=== PATIENT | female | born 1955 | race Caucasian/White ===

== ENCOUNTER → 2022-05-21 12:49 | Outpatient (CLI) | payer MEDICARE, SELFPAY ==
--- NOTE | 2022-05-21 12:51 | DI.MG.S_ITS ---
BILATERAL DIGITAL SCREENING MAMMOGRAM 3D/2D WITH CAD: 05/21/2022 CLINICAL: Routine screening. Baseline exam by default. No prior exams were available for comparison. Both breasts are heterogeneously dense, which may obscure small masses (category c / 51-75% glandular tissue). Current study was also evaluated with a Computer Aided Detection (CAD) system. No significant masses, calcifications, or other findings are seen in either breast. IMPRESSION: NEGATIVE There is no mammographic evidence of malignancy. A 1 year screening mammogram is recommended. Based on the Tyrer Cuzick model (a risk assessment model) the patient's lifetime risk is 6.5% and her 10 year risk is 3.6%. According to the ACR, ACS, and NCCN guidelines, an annual breast MRI exam along with mammogram is recommended if the patient's lifetime risk is 20% or greater. This exam was interpreted at Station ID: [id number]. NOTE: For mammograms, a report in lay terms will be sent to the patient. Approximately 15% of breast malignancies will not be visualized mammographically. In the management of a palpable breast mass, a negative mammogram must not discourage biopsy of a clinically suspicious lesion. Electronically Signed By: Kary boyle/sonja:05/21/2022 17:31:38 letter sent: Normal Exam ACR BI-RADS Category 1: Negative [id number]
--- NOTE | 2022-05-21 13:56 | DI.ECHO.S_ITS ---
Interpretation Summary 1) Normal left ventricular thickness and size with low normal systolic function (EF 50-55%). 2) Normal right ventricular size and function. 3) Mild aortic stenosis present (valve area 1.7cm2, mean gradient 9mmHg, severity ratio 0.5). 4) No prior Echo available for comparison. Procedure: A two-dimensional transthoracic echocardiogram with color flow and Doppler was performed. The study quality was technically difficult. There is no prior echocardiogram noted for this patient. The patient was in sinus tachycardia with heart rates between 109-120 bpm during the exam. Left Ventricle: The left ventricle is normal in size and wall thickness. The ejection fraction is estimated to be 50-55%. There are no focal wall motion abnormalities. Diastolic function could not be accurately assessed due to tachycardia. Right Ventricle: The right ventricle is normal in size and function. Atria: Both atria are normal in size. The interatrial septum grossly appears intact with no obvious evidence for an atrial septal defect. Mitral Valve: The mitral valve is grossly normal. There is no mitral regurgitation noted. Aortic Valve: The aortic valve is mildly calcified. There is mild aortic stenosis. No aortic regurgitation is present. Tricuspid Valve: The tricuspid valve is normal in structure and function. No tricuspid regurgitation. Pulmonary artery pressures cannot be estimated because of the lack of a measurable TR jet velocity. Pulmonic Valve: The pulmonic valve is not well visualized. Great Vessels: The aortic root is normal size. The ascending aorta could not be visualized. The IVC is of normal diameter and collapses greater than 50% with a sniff. This suggests a low right atrial pressure of 3 mm Hg. Pericardium/ Pleura There is no pericardial effusion. There is no pleural effusion. MMode/2D Measurements & Calculations LVIDd: 3.7 cm LVOT diam: 2.0 cm LVIDs: 2.9 cm Ao root diam: 2.8 cm FS: 22.9 % IVSd: 1.0 cm LVPWd: 0.89 cm LV douglas. diameter/BSA (cm/m^2): 2.4 LV sys. diameter/BSA (cm/m^2): 1.9 LA dimension: 2.2 cm TAPSE: 1.8 cm Doppler Measurements & Calculations Ao V2 max: 200.6 cm/sec LVOT Max Santos: 109.4 cm/sec Ao V2 mean: 142.0 cm/sec LV V1 max P.8 mmHg Ao max P.1 mmHg LV V1 VTI: 14.1 cm Ao mean P.0 mmHg MEI(I,D): 1.5 cm2 Ao V2 VTI: 28.1 cm MEI(V,D): 1.7 cm2 sev ratio: 0.50 MEI indexed to BSA (cm^2/m^2): 1.0 Lat Peak E' Santos: 7.7 cm/sec SV(LVOT): 43.2 ml Reading Physician:03:11 PM
== END ==
PROVIDERS: PCP Nurse Practitioner Family; Referring Provider Nurse Practitioner Family; Visit Provider Nurse Practitioner Family
DX: Z12.31 Encounter for screening mammogram for malignant neoplasm of breast (principal); Z13.820 Encounter for screening for osteoporosis; M81.0 Age-related osteoporosis without current pathological fracture; Z78.0 Asymptomatic menopausal state; I35.0 Nonrheumatic aortic (valve) stenosis; I50.22 Chronic systolic (congestive) heart failure
CPT/HCPCS: 77063; 77067; 77080; 93306

== ENCOUNTER 2022-06-16 17:51 | Inpatient (IN) | payer MEDICARE, SELFPAY ==
[2022-06-16 17:56] VITALS: BP 108/58; PULSE 108; RESP 18; TEMP 37.2; O2SAT 84; BMI 16.6
--- NOTE | 2022-06-16 18:01 | DI.RAD.S_ITS ---
PROCEDURE: XR CHEST 1V INDICATIONS: Shortness of breath TECHNIQUE: One view of the chest was acquired. COMPARISON: None. FINDINGS: Surgical changes and devices: None. Lungs and pleura: Lungs are clear. No pleural effusions or pneumothorax. Mediastinum: Mediastinal contours appear normal. Heart size is normal. Bones and chest wall: No suspicious bony lesions. Mild dextroconvex scoliotic curvature is seen. Age-appropriate bony degenerative changes are seen. Overlying soft tissues appear unremarkable. IMPRESSION: No acute cardiopulmonary process is seen. Dictated by: Shashank Jeff M.D. on 06/16/2022 at 17:49 Approved by: Shashank Jeff M.D. on 06/16/2022 at 17:49
--- NOTE | 2022-06-16 18:15 | ED_ITS ---
HPI - General Adult General Chief complaint: Shortness of Breath/Dyspnea Stated complaint: Cough, O2 @ 88 Time Seen by Provider: 06/16/22 18:08 Source: patient and family Mode of arrival: Ambulatory Limitations: no limitations History of Present Illness HPI narrative: Patient is a 59-year-old female who arrives in the emergency department today by family vehicle for evaluation of shortness of breath. Patient does not have a history of underlying lung pathology. She has smoked in the past but not currently. At the end of last year she spent several days in the hospital for CHF. She is on medications. Earlier this week she started to develop a cough and shortness of breath which has worsened. Subjective fevers. Nonproductive cough. No chest pain. No lower extremity swelling. She is actually lost w eight over the past couple days. No sick contacts. She does have history of Crohn's disease as well and is not having any GI symptoms. She is on immunosuppressants for this. Was seen at her primary doctor's office today. Was found to be hypoxic. Was sent by private vehicle without oxygen Related Data Allergies Allergy/AdvReac Type Severity Reaction Status Date / Time latex Allergy Intermediate Hives Verified 06/16/22 19:05 Penicillins Allergy Unknown Verified 06/16/22 19:05 Review of Systems Review of Systems ROS Unobtainable: All systems reviewed & are unremarkable except as noted in HPI and below Patient History Medical History CHF (congestive heart failure) Crohn's disease Hypertension Social History Smoking Status: Former smoker Smoking Status: Former smoker alcohol intake frequency: holidays/special occasions only Substance Use Type: does not use Exam Initial Vital Signs Initial Vital Signs: Vital Signs Temperature 98.9 F 06/16/22 17:56 Pulse Rate 108 H 06/16/22 17:56 Respiratory Rate 18 06/16/22 17:56 Blood Pressure 108/58 L 06/16/22 17:56 Pulse Oximetry 84 L 06/16/22 17:56 Oxygen Delivery Method 06/16/22 17:56 Const General: cooperative and comfortable HENMT Head: normal to inspection and normocephalic Nose: external nose normal Mouth: moist mucous membranes Resp Effort & Inspection: normal respiratory effort, not labored, no respiratory distress and tachypneic Auscultation: diminished lung sounds Cardio Rate: tachycardic Rhythm: regular rhythm GI Inspection: normal to inspection Palpation: No tender Skin General: no rashes or lesions noted Neuro General: patient alert, patient awake, patient oriented x3 and moves all extremities Extrem General: No edema Psych Appearance: grossly normal and well kempt Scores GCS [place] coma scale eye opening: Spontaneous [place] coma scale verbal response: Orientated [place] coma scale motor response: Obey commands [place] coma scale total score: 15 Course Orders Ordered: ED Orders 06/16/22 18:01 XR chest 1V Stat 06/16/22 18:10 D Dimer Stat 06/16/22 18:20 Complete Blood Count AUTO DIFF Stat Comprehensive Metabolic Panel Stat Lactate (Lactic Acid) Stat NT-proBNP (BNP-Adult 18+) Stat Procalcitonin Stat Prothrombin Time INR Stat Troponin & CK Cardiac Panel Stat 06/16/22 18:26 Covid-19 + FLU A/B + RSV - PCR Stat 06/16/22 18:41 Urine Culture Stat 06/16/22 18:55 Blood Culture Stat Acetaminophen (Acetaminophen 325 Mg Tablet) 650 mg PO Q6H PRN PRN Reason: Fever/Mild Pain (1-3) Enoxaparin Sodium (Enoxaparin 40 Mg/0.4 Ml Syringe) 40 mg SUBCUT DAILY [facility] Ceftriaxone Sodium 1,000 mg/ (Sodium Chloride) 100 mls @ 200 mls/hr IV Q24H PRASAD Azithromycin 500 mg/ Dextrose 250 mls @ 250 mls/hr IV Q24H PRASAD Levofloxacin (Levaquin) 750 mg in 150 mls @ 100 mls/hr IV Q24H PRASAD Naloxone HCl (Naloxone 0.4 Mg/Ml Vial) 0.2 mg IV Q2MIN PRN PRN Reason: Opiate Reversal Ondansetron HCl (Ondansetron 4 Mg/2 Ml Inj) 4 mg IV Q8HR PRN PRN Reason: Nausea And Vomiting Discontinued Medications Albuterol/Ipratropium (Albuterol/Ipratropium 3 Ml Ampul) 3 ml INH NOW ONE Stop: 06/16/22 18:15 Last Admin: 06/16/22 18:17 Dose: 3 ml Documented By: OZIEL Ceftriaxone Sodium 1,000 mg/ (Sodium Chloride) 100 mls @ 200 mls/hr IV NOW ONE Stop: 06/16/22 18:42 Last Infusion: 06/16/22 19:52 Dose: 0 mls/hr Documented By: Admin: 06/16/22 19:15 Dose: 200 mls/hr Documented By: ANTONIO Sodium Chloride (Normal Saline 0.9%) 1,000 mls @ 125 mls/hr IV CONT PRASAD Last Infusion: 06/16/22 20:23 Dose: 0 mls/hr Documented By: Infusion: 06/16/22 19:07 Dose: 999 mls/hr Documented By: Admin: 06/16/22 19:06 Dose: 125 mls/hr Documented By: ANTONIO Azithromycin 500 mg/ Dextrose 250 mls @ 250 mls/hr IV NOW ONE Stop: 06/16/22 20:42 Vital Signs Vital signs: Vital Signs - 8 hr 06/16/22 17:56 06/16/22 18:18 06/16/22 19:05 Temperature 98.9 F Pulse Rate 108 H 105 H 105 H Respiratory Rate 18 28 H 92 H Blood Pressure 108/58 L 87/60 L Pulse Oximetry 84 L 94 92 Oxygen Delivery Method Room Air Nasal Cannula Oxygen Flow Rate 2 2 06/16/22 20:21 Temperature Pulse Rate 108 H Respiratory Rate 17 Blood Pressure 107/55 L Pulse Oximetry 94 Oxygen Delivery Method Nasal Cannula Oxygen Flow Rate 2 Medical Decision Making Medical Records Medical records reviewed: Yes I reviewed the patient's medical records. Lab Data Lab results reviewed: Yes I reviewed the patient's lab results. Result diagrams: 06/16/22 18:20 06/16/22 18:20 Labs: Lab Results 06/16/22 06/16/22 06/16/22 Range/Units 18:10 18:20 18:20 WBC 14.9 H (4.5-11.0) X10^3/uL RBC 3.99 L (4.0-5.2) X10^6/uL Hgb 11.7 L (12.0-16.0) g/dL Hct 35.2 L (36-46) % MCV 88.2 (80-100) fL MCH 29.3 (26-34) PG MCHC 33.2 (30-36) % RDW 13.3 (11.6-14.8) % Plt Count 184 (150-400) X10^3/uL Neut % (Auto) 84.4 H (50-75) % Lymph % (Auto) 7.8 L (25-40) % [place] % (Auto) 6.0 (3-14) % Eos % (Auto) 1.7 L (2-4) % Baso % (Auto) 0.1 (0-2) % Neut # (Auto) 46214 H (1664-9157) /uL Lymph # (Auto) 1200 (5469-8913) /uL [place] # (Auto) 900 (0-900) /uL Eos # (Auto) 300 (0-450) /uL Baso # (Auto) 0 (0-100) /uL PT 15.8 H (10.1-12.7) SECONDS INR 1.4 H (0.9-1.3) D-Dimer 666 H (<500) ng/ml Sodium (137-145) mmol/L Potassium (3.4-5.1) mmol/L Chloride (98-107) mmol/L Carbon Dioxide (22-32) mmol/L BUN (7-17) mg/dL Creatinine (0.52-1.04) mg/dL Estimated GFR (>60) mL/min BUN/Creatinine Ratio (6-22) Glucose (80-110) mg/dL Lactate (0.7-2.1) mmol/L Calcium (8.4-10.2) mg/dL Total Bilirubin (0.2-1.3) mg/dL AST (14-36) IU/L ALT (<35) IU/L Alkaline Phosphatase (38-126) U/L Total Creatine Kinase (30-135) U/L CK-MB (CK-2) CK-MB (CK-2) Rel Index Troponin I NT-Pro-B Natriuret Pep (<125) pg/mL Total Protein (6.3-8.2) g/dL Albumin (3.5-5.0) g/dL Globulin (1.7-4.1) g/dL Albumin/Globulin Ratio (1.0-2.8) Procalcitonin (<0.5) ng/mL SARS-CoV-2 (PCR) (Negative) Influenza A (RT-PCR) (NEGATIVE) Influenza B (RT-PCR) (NEGATIVE) RSV (PCR) (Negative) 01/10/0306/16/22 06/16/22 Range/Units 18:20 18:20 18:20 WBC (4.5-11.0) X10^3/uL RBC (4.0-5.2) X10^6/uL Hgb (12.0-16.0) g/dL Hct (36-46) % MCV (80-100) fL MCH (26-34) PG MCHC (30-36) % RDW (11.6-14.8) % Plt Count (150-400) X10^3/uL Neut % (Auto) (50-75) % Lymph % (Auto) (25-40) % [place] % (Auto) (3-14) % Eos % (Auto) (2-4) % Baso % (Auto) (0-2) % Neut # (Auto) (5233-3160) /uL Lymph # (Auto) (8366-6960) /uL [place] # (Auto) (0-900) /uL Eos # (Auto) (0-450) /uL Baso # (Auto) (0-100) /uL PT (10.1-12.7) SECONDS INR (0.9-1.3) D-Dimer (<500) ng/ml Sodium 138 (137-145) mmol/L Potassium 3.6 (3.4-5.1) mmol/L Chloride 97 L (98-107) mmol/L Carbon Dioxide 29 (22-32) mmol/L BUN 29 H (7-17) mg/dL Creatinine 0.73 (0.52-1.04) mg/dL Estimated GFR > 60 (>60) mL/min BUN/Creatinine Ratio 39.7 H (6-22) Glucose 137 H (80-110) mg/dL Lactate 1.4 (0.7-2.1) mmol/L Calcium 8.8 (8.4-10.2) mg/dL Total Bilirubin 1.3 (0.2-1.3) mg/dL AST 24 (14-36) IU/L ALT 21 (<35) IU/L Alkaline Phosphatase 84 (38-126) U/L Total Creatine Kinase 59 (30-135) U/L CK-MB (CK-2) TNP CK-MB (CK-2) Rel Index TNP Troponin I Cancelled < 0.012 NT-Pro-B Natriuret Pep 489 H (<125) pg/mL Total Protein 7.8 (6.3-8.2) g/dL Albumin 3.9 (3.5-5.0) g/dL Globulin 3.9 (1.7-4.1) g/dL Albumin/Globulin Ratio 1.0 (1.0-2.8) Procalcitonin (<0.5) ng/mL SARS-CoV-2 (PCR) (Negative) Influenza A (RT-PCR) (NEGATIVE) Influenza B (RT-PCR) (NEGATIVE) RSV (PCR) (Negative) 06/16/22 06/16/22 Range/Units 18:20 18:26 WBC (4.5-11.0) X10^3/uL RBC (4.0-5.2) X10^6/uL Hgb (12.0-16.0) g/dL Hct (36-46) % MCV (80-100) fL MCH (26-34) PG MCHC (30-36) % RDW (11.6-14.8) % Plt Count (150-400) X10^3/uL Neut % (Auto) (50-75) % Lymph % (Auto) (25-40) % [place] % (Auto) (3-14) % Eos % (Auto) (2-4) % Baso % (Auto) (0-2) % Neut # (Auto) (4202-1393) /uL Lymph # (Auto) (5250-9368) /uL [place] # (Auto) (0-900) /uL Eos # (Auto) (0-450) /uL Baso # (Auto) (0-100) /uL PT (10.1-12.7) SECONDS INR (0.9-1.3) D-Dimer (<500) ng/ml Sodium (137-145) mmol/L Potassium (3.4-5.1) mmol/L Chloride (98-107) mmol/L Carbon Dioxide (22-32) mmol/L BUN (7-17) mg/dL Creatinine (0.52-1.04) mg/dL Estimated GFR (>60) mL/min BUN/Creatinine Ratio (6-22) Glucose (80-110) mg/dL Lactate (0.7-2.1) mmol/L Calcium (8.4-10.2) mg/dL Total Bilirubin (0.2-1.3) mg/dL AST (14-36) IU/L ALT (<35) IU/L Alkaline Phosphatase (38-126) U/L Total Creatine Kinase (30-135) U/L CK-MB (CK-2) CK-MB (CK-2) Rel Index Troponin I NT-Pro-B Natriuret Pep (<125) pg/mL Total Protein (6.3-8.2) g/dL Albumin (3.5-5.0) g/dL Globulin (1.7-4.1) g/dL Albumin/Globulin Ratio (1.0-2.8) Procalcitonin 2.87 H (<0.5) ng/mL SARS-CoV-2 (PCR) Negative (Negative) Influenza A (RT-PCR) Flu a negative (NEGATIVE) Influenza B (RT-PCR) Flu b negative (NEGATIVE) RSV (PCR) Negative (Negative) MDM Narrative Medical decision making narrative: Given her presentation and new onset oxygen requirement and her leukocytosis and her elevated procalcitonin there was concern about pneumonia so she was started on antibiotics. Blood cultures were obtained. Patient was not hypotensive. Given her history of CHF and not clinically dehydrated we will hold on the 30 cc per kg of fluids. Also considered heart failure however her BNP is unremarkable and chest x-ray is unremarkable and she is not clinically in heart failure so we will hold on any diuretics. No prior history of COPD but given her smoking history this is a possibility. She had minimal if any improvement with the nebulizer. Her COVID/flu is negative. Her age adjusted D-dimer is below cut off so we will hold on any CTA for now. Given her new oxygen requirement patient does require admission to the hospital. Discussed this with the patient who expressed understanding. Discussed the case with Dr. Machado on-call for hospitalist who will admit for further evaluation and treatment. Discharge Plan Departure Patient Disposition: Admitted As Inpatient Clinical Impression: Breath shortness, Pneumonia, Hypoxia Admit Date/Time: 06/16/22 20:46 Admit Provider: Tevin Machado
[2022-06-16] MEDS: ALBUTEROL/IPRATROPIUM 3 ML AMPUL INH (18:17)
[2022-06-16 18:18] VITALS: PULSE 105; RESP 28; O2SAT 94
[2022-06-16 18:34] LABS: Add Manual Diff / Slide Review NO; Basophils Absolute Auto 0 /uL (0-100); Basophils Percent Auto 0.1 % (0-2); Eosinophils Absolute Auto 300 /uL (0-450); Eosinophils Percent Auto 1.7 % (2-4); Hematocrit 35.2 % (36-46); Hemoglobin 11.7 g/dL (12.0-16.0); Lymphocytes Absolute Auto 1200 /uL (1100-4500); Lymphocytes Percent Auto 7.8 % (25-40); Mean Corpuscular HGB Conc 33.2 % (30-36); Mean Corpuscular Hemoglobin 29.3 PG (26-34); Mean Corpuscular Volume 88.2 fL (80-100); Monocytes Absolute Auto 900 /uL (0-900); Neutrophils Absolute Auto 12600 /uL (1500-7000); Neutrophils Percent Auto 84.4 % (50-75); Platelet Count 184 X10^3/uL (150-400); Red Blood Cell Count 3.99 X10^6/uL (4.0-5.2); Red Cell Distribution Width 13.3 % (11.6-14.8); White Blood Cell Count 14.9 X10^3/uL (4.5-11.0)
[2022-06-16 18:44] LABS: INR 1.4 (0.9-1.3); Prothrombin Time 15.8 SECONDS (10.1-12.7)
[2022-06-16 18:51] LABS: Lactate (Lactic Acid) 1.4 mmol/L (0.7-2.1)
[2022-06-16 18:52] LABS: Creatine Kinase 59 U/L (30-135)
[2022-06-16 18:53] LABS: Alanine Aminotransferase 21 IU/L (<35); Albumin 3.9 g/dL (3.5-5.0); Alkaline Phosphatase 84 U/L (38-126); Aspartate Aminotransferase 24 IU/L (14-36); BUN Creatinine Ratio 39.7 (6-22); Bilirubin Total 1.3 mg/dL (0.2-1.3); Blood Urea Nitrogen 29 mg/dL (7-17); Calcium 8.8 mg/dL (8.4-10.2); Carbon Dioxide 29 mmol/L (22-32); Chloride 97 mmol/L (98-107); Estimated Glomerular Filt Rate > 60 mL/min (>60); Globulin 3.9 g/dL (1.7-4.1); Glucose 137 mg/dL (80-110); HEMOLYSIS < 15 (0-50); Potassium 3.6 mmol/L (3.4-5.1); Sodium 138 mmol/L (137-145); Total Protein 7.8 g/dL (6.3-8.2)
[2022-06-16 19:00] LABS: NT-proBNP (BNP-Adult 18+) 489 pg/mL (<125)
[2022-06-16 19:03] LABS: Troponin I < 0.012 ng/mL (0.01-0.034)
[2022-06-16 19:05] VITALS: BP 87/60; PULSE 105; RESP 92; O2SAT 92
[2022-06-16] MEDS: SODIUM CHLORIDE 0.9% 1,000 ML 125 ML IV (19:06)
[2022-06-16 19:09] LABS: Procalcitonin 2.87 ng/mL (<0.5)
[2022-06-16 19:12] LABS: Influenza A - CEPHEID Flu A NEGATIVE (NEGATIVE); Influenza B - CEPHEID Flu B NEGATIVE (NEGATIVE); Respiratory Syncytial Virus Negative (Negative)
[2022-06-16] MEDS: cefTRIAXone 1,000 MG in SODIUM CHLORIDE 0.9% 100 ML 200 MG IV (19:15)
[2022-06-16 19:23] LABS: COVID-19 CEPHEID 4-PLEX PCR Negative (Negative)
[2022-06-16 19:37] LABS: D Dimer 666 ng/ml (<500)
[2022-06-16 20:21] VITALS: BP 107/55; PULSE 108; RESP 17; O2SAT 94
--- NOTE | 2022-06-16 21:47 | PM.HP.1 ---
History of Present Illness History of Present Illness Date Patient Seen: 06/16/22 Time Patient Seen: 22:00 Chief complaint: Cough, O2 @ 88 Narrative: Ms. Brasher is a 59W with PMH CHF, , crohns, HTN who presents to the hospital with shortness of breath. On Tuesday she started developing a cough that then developed into shortness of breath. She was not producing much sputum. She coughed so much she lost her voice. She has no fevers/chills. No chest pain. No weight gain. No lower extremity edema. No nausea, vomiting, abdominal pain, diarrhea, or dysuria. She was seen in clinic and O2 sats were in the 80s and she was directed to come to the ED. In the ED workup was done vitals were notable for afebrile, heart rate in the 100s, blood pressure 100s/50s, O2 sat 84%. She was placed on oxygen. Labs notable for WBC 14.9, hgb 11.7. INR 1.4, d-dimer 666. Creatinine 0.73. Troponin negative. BNP 489. Procalcitonin 2.87. Flu, covid, rsv negative. Chest xray per radiologist read read as no acute process, but per my read concerning for retrocardiac opacity. Family history: asked and no family history of CHF Patient History Medical History CHF (congestive heart failure) Crohn's disease Hypertension Family & Social History Safety & Behavioral: Feels Safe in Current Yes Environment Been Physically Hurt or No Threatened By a Person Tobacco & Substance use: Smoking Status Former smoker alcohol intake frequency holiday/special occasion Substance Use Type does not use Meds Home Medications and Allergies Home Medications Medication Instructions Recorded Confirmed Type albuterol sulfate 90 mcg/actuation 2 puff inhalation Q4-6H PRN 06/16/22 06/16/22 History aerosol inhaler Shortness Of Breath hydroxyzine HCl 10 mg/5 mL (5 mL) 25 mg PO QID PRN Anxiety 06/16/22 06/16/22 History oral solution ipratropium 0.5 mg-albuterol 3 mg 3 ml inhalation Q6H PRN Shortness 06/16/22 06/16/22 History (2.5 mg base)/3 mL nebulization Of Breath soln losartan 25 mg tablet 12.5 mg PO DAILY 06/16/22 06/16/22 History metoprolol succinate 100 mg 100 mg PO BEDTIME 06/16/22 06/16/22 History tablet,extended release 24 hr omeprazole 20 mg capsule,delayed 20 mg PO DAILY 06/16/22 06/16/22 History release spironolactone 25 mg tablet 25 mg PO DAILY 06/16/22 06/16/22 History torsemide 10 mg tablet 10 mg PO PRN PRN Weight Gain 06/16/22 06/16/22 History ustekinumab 90 mg/mL subcutaneous 90 mg SUBCUT Q8W 06/16/22 06/16/22 History syringe (Stelara) Allergies Allergy/AdvReac Type Severity Reaction Status Date / Time latex Allergy Intermediate Hives Verified 06/16/22 19:05 Penicillins Allergy Unknown Verified 06/16/22 19:05 Review of Systems Review of Systems Narrative: 14 systems reviewed and negative aside from what is noted in HPI Exam Vital Signs (past 8 hours): - 06/16/22 17:56 06/16/22 18:18 06/16/22 19:05 Temperature 98.9 F Pulse Rate 108 H 105 H 105 H Respiratory Rate 18 28 H 92 H Blood Pressure 108/58 L 87/60 L Pulse Oximetry 84 L 94 92 Oxygen Delivery Method Room Air Nasal Cannula Oxygen Flow Rate 2 2 06/16/22 20:21 Temperature Pulse Rate 108 H Respiratory Rate 17 Blood Pressure 107/55 L Pulse Oximetry 94 Oxygen Delivery Method Nasal Cannula Oxygen Flow Rate 2 Oxygen Delivery Method Nasal Cannula Oxygen Flow Rate 2 Narrative Exam Narrative: GEN: in respiratory distress HEENT: moist mucous membranes, PERRL NECK: trachea midline, no JVD PULM: coarse breath sounds bilaterally CV: tachycardia, no murmurs ABD: soft, nontender, nondistended, no organomegaly, normal bowel sounds EXT: warm and well perfused with no edema NEURO: awake, alert, oriented, no focal deficits Objective Labs Result Diagrams: 06/16/22 18:20 06/16/22 18:20 Labs: Laboratory Results - last 24 hr 06/16/22 06/16/22 06/16/22 18:10 18:20 18:20 WBC 14.9 H RBC 3.99 L Hgb 11.7 L Hct 35.2 L MCV 88.2 MCH 29.3 MCHC 33.2 RDW 13.3 Plt Count 184 Neut % (Auto) 84.4 H Lymph % (Auto) 7.8 L [place] % (Auto) 6.0 Eos % (Auto) 1.7 L Baso % (Auto) 0.1 Neut # (Auto) 13729 H Lymph # (Auto) 1200 [place] # (Auto) 900 Eos # (Auto) 300 Baso # (Auto) 0 PT 15.8 H INR 1.4 H D-Dimer 666 H Sodium Potassium Chloride Carbon Dioxide BUN Creatinine Estimated GFR BUN/Creatinine Ratio Glucose Lactate Calcium Total Bilirubin AST ALT Alkaline Phosphatase Total Creatine Kinase CK-MB (CK-2) CK-MB (CK-2) Rel Index Troponin I NT-Pro-B Natriuret Pep Total Protein Albumin Globulin Albumin/Globulin Ratio Procalcitonin SARS-CoV-2 (PCR) Influenza A (RT-PCR) Influenza B (RT-PCR) RSV (PCR) 06/16/22 06/16/22 06/16/22 18:20 18:20 18:20 WBC RBC Hgb Hct MCV MCH MCHC RDW Plt Count Neut % (Auto) Lymph % (Auto) [place] % (Auto) Eos % (Auto) Baso % (Auto) Neut # (Auto) Lymph # (Auto) [place] # (Auto) Eos # (Auto) Baso # (Auto) PT INR D-Dimer Sodium 138 Potassium 3.6 Chloride 97 L Carbon Dioxide 29 BUN 29 H Creatinine 0.73 Estimated GFR > 60 BUN/Creatinine Ratio 39.7 H Glucose 137 H Lactate 1.4 Calcium 8.8 Total Bilirubin 1.3 AST 24 ALT 21 Alkaline Phosphatase 84 Total Creatine Kinase 59 CK-MB (CK-2) TNP CK-MB (CK-2) Rel Index TNP Troponin I Cancelled < 0.012 NT-Pro-B Natriuret Pep 489 H Total Protein 7.8 Albumin 3.9 Globulin 3.9 Albumin/Globulin Ratio 1.0 Procalcitonin SARS-CoV-2 (PCR) Influenza A (RT-PCR) Influenza B (RT-PCR) RSV (PCR) 06/16/22 06/16/22 18:20 18:26 WBC RBC Hgb Hct MCV MCH MCHC RDW Plt Count Neut % (Auto) Lymph % (Auto) [place] % (Auto) Eos % (Auto) Baso % (Auto) Neut # (Auto) Lymph # (Auto) [place] # (Auto) Eos # (Auto) Baso # (Auto) PT INR D-Dimer Sodium Potassium Chloride Carbon Dioxide BUN Creatinine Estimated GFR BUN/Creatinine Ratio Glucose Lactate Calcium Total Bilirubin AST ALT Alkaline Phosphatase Total Creatine Kinase CK-MB (CK-2) CK-MB (CK-2) Rel Index Troponin I NT-Pro-B Natriuret Pep Total Protein Albumin Globulin Albumin/Globulin Ratio Procalcitonin 2.87 H SARS-CoV-2 (PCR) Negative Influenza A (RT-PCR) Flu a negative Influenza B (RT-PCR) Flu b negative RSV (PCR) Negative Assessment & Plan Assessment & Plan narrative: 1. Acute hypoxemic respiratory failure secondary to pneumonia -initial sats in the 80s, placed on oxygen -elevated white count, procalcitonin consistent clinically with pneumonia -UA dip negative for infection -chest xray negative per radiology read, per my read looks like retrocardiac opacity -IV antibiotics ordered 2. Chronic congestive heart failure with mild aortic stenosis -EF 50-55%, with mild -clinically not in CHF -careful with IV fluids -hold diuretics for now 3. Crohn's disease -on stelara as outpatient, continue when discharged 4. Hypertension -patient with somewhat low blood pressures on admit -hold home medications CODE: Full Proxy: Celeste Villatoro, daughter I have utilized all available resources to reconcile the patient's home medications Time Spent With Patient Critical Care time: I spent a total of [] minutes of critical care time on this patient's care today; this time is exclusive of procedural time.
[2022-06-16 21:50] VITALS: O2SAT 91
[2022-06-16 22:05] VITALS: BP 112/59; PULSE 107; RESP 17; TEMP 37.1; O2SAT 95
[2022-06-16 22:21] VITALS: BMI 16.6
[2022-06-16] MEDS: BENZONATATE 100 MG CAPSULE PO (23:03)
[2022-06-17] VITALS (11 sets, daily range): BP systolic 89–120; BP diastolic 47–71; PULSE 98–112; RESP 16–23; TEMP 36.9–38.8; O2SAT 2–95
[2022-06-17 05:51] LABS: Add Manual Diff / Slide Review NO; Basophils Absolute Auto 0 /uL (0-100); Basophils Percent Auto 0.3 % (0-2); Eosinophils Absolute Auto 100 /uL (0-450); Eosinophils Percent Auto 1.5 % (2-4); Hematocrit 30.6 % (36-46); Hemoglobin 10.4 g/dL (12.0-16.0); Lymphocytes Absolute Auto 1100 /uL (1100-4500); Lymphocytes Percent Auto 12.3 % (25-40); Mean Corpuscular HGB Conc 34.1 % (30-36); Mean Corpuscular Volume 87.9 fL (80-100); Monocytes Absolute Auto 600 /uL (0-900); Monocytes Percent Auto 6.4 % (3-14); Neutrophils Absolute Auto 7300 /uL (1500-7000); Neutrophils Percent Auto 79.5 % (50-75); Platelet Count 141 X10^3/uL (150-400); Red Blood Cell Count 3.48 X10^6/uL (4.0-5.2); Red Cell Distribution Width 13.2 % (11.6-14.8); White Blood Cell Count 9.2 X10^3/uL (4.5-11.0)
[2022-06-17 06:01] LABS: BUN Creatinine Ratio 28.1 (6-22); Blood Urea Nitrogen 18 mg/dL (7-17); Calcium 8.1 mg/dL (8.4-10.2); Carbon Dioxide 28 mmol/L (22-32); Chloride 104 mmol/L (98-107); Estimated Glomerular Filt Rate > 60 mL/min (>60); Glucose 103 mg/dL (80-110); HEMOLYSIS < 15 (0-50); Potassium 3.3 mmol/L (3.4-5.1); Sodium 140 mmol/L (137-145)
[2022-06-17] MEDS: ENOXAPARIN 40 MG/0.4 ML SYRINGE SUBCUT (09:12)
[2022-06-17] MEDS: levoFLOXacin 750 MG/150 ML PIGGYBACK 100 MG IV (09:12)
[2022-06-17] MEDS: POTASSIUM CHLORIDE 20 MEQ TAB 40 MEQ PO (09:21)
--- NOTE | 2022-06-17 10:06 | P.PN_ITS ---
Subjective Subjective Date Patient Seen: 06/17/22 Interval history: 67 year old female admitted with acute respiratory failure, likely due to bacterial pnuemonia. She is improved today but with continued cough which is causing her some rib pain. No nausea or vomiting. Still remains on a few L of oxygen. Exam Vital Signs (past 8 hours): - 06/17/22 04:14 06/17/22 05:50 06/17/22 09:47 Temperature 98.6 F 98.4 F Pulse Rate 106 H 108 H Respiratory Rate 16 20 Blood Pressure 96/49 L 90/71 Pulse Oximetry 92 92 95 Oxygen Delivery Method Nasal Cannula Oxygen Flow Rate 2 2 2 Oxygen Delivery Method Nasal Cannula Oxygen Flow Rate 2 Narrative Exam Narrative: GEN: thin female, no acute distress, fatigued. HEENT: moist mucous membranes, PERRL NECK: trachea midline, no JVD PULM: CTA b/l no wheezing, rhonchi, or rales. CV: RRR, no murmurs ABD: soft, nontender, nondistended EXT: warm and well perfused with no edema NEURO: awake, alert, oriented, no focal deficits Objective Labs Result Diagrams: 06/17/22 05:33 06/17/22 05:33 Labs: Laboratory Results - last 24 hr 06/16/22 06/16/22 06/16/22 18:10 18:20 18:20 WBC 14.9 H RBC 3.99 L Hgb 11.7 L Hct 35.2 L MCV 88.2 MCH 29.3 MCHC 33.2 RDW 13.3 Plt Count 184 Neut % (Auto) 84.4 H Lymph % (Auto) 7.8 L Cotton % (Auto) 6.0 Eos % (Auto) 1.7 L Baso % (Auto) 0.1 Neut # (Auto) 58360 H Lymph # (Auto) 1200 [place] # (Auto) 900 Eos # (Auto) 300 Baso # (Auto) 0 PT 15.8 H INR 1.4 H D-Dimer 666 H Sodium Potassium Chloride Carbon Dioxide BUN Creatinine Estimated GFR BUN/Creatinine Ratio Glucose Lactate Calcium Total Bilirubin AST ALT Alkaline Phosphatase Total Creatine Kinase CK-MB (CK-2) CK-MB (CK-2) Rel Index Troponin I NT-Pro-B Natriuret Pep Total Protein Albumin Globulin Albumin/Globulin Ratio Procalcitonin SARS-CoV-2 (PCR) Influenza A (RT-PCR) Influenza B (RT-PCR) RSV (PCR) 06/16/22 06/16/22 06/16/22 18:20 18:20 18:20 WBC RBC Hgb Hct MCV MCH MCHC RDW Plt Count Neut % (Auto) Lymph % (Auto) Cotton % (Auto) Eos % (Auto) Baso % (Auto) Neut # (Auto) Lymph # (Auto) Cotton # (Auto) Eos # (Auto) Baso # (Auto) PT INR D-Dimer Sodium 138 Potassium 3.6 Chloride 97 L Carbon Dioxide 29 BUN 29 H Creatinine 0.73 Estimated GFR > 60 BUN/Creatinine Ratio 39.7 H Glucose 137 H Lactate 1.4 Calcium 8.8 Total Bilirubin 1.3 AST 24 ALT 21 Alkaline Phosphatase 84 Total Creatine Kinase 59 CK-MB (CK-2) TNP CK-MB (CK-2) Rel Index TNP Troponin I Cancelled < 0.012 NT-Pro-B Natriuret Pep 489 H Total Protein 7.8 Albumin 3.9 Globulin 3.9 Albumin/Globulin Ratio 1.0 Procalcitonin SARS-CoV-2 (PCR) Influenza A (RT-PCR) Influenza B (RT-PCR) RSV (PCR) 06/16/22 06/16/22 06/17/22 18:20 18:26 05:33 WBC 9.2 RBC 3.48 L Hgb 10.4 L Hct 30.6 L MCV 87.9 MCH 30.0 MCHC 34.1 RDW 13.2 Plt Count 141 L Neut % (Auto) 79.5 H Lymph % (Auto) 12.3 L Cotton % (Auto) 6.4 Eos % (Auto) 1.5 L Baso % (Auto) 0.3 Neut # (Auto) 7300 H Lymph # (Auto) 1100 [place] # (Auto) 600 Eos # (Auto) 100 Baso # (Auto) 0 PT INR D-Dimer Sodium Potassium Chloride Carbon Dioxide BUN Creatinine Estimated GFR BUN/Creatinine Ratio Glucose Lactate Calcium Total Bilirubin AST ALT Alkaline Phosphatase Total Creatine Kinase CK-MB (CK-2) CK-MB (CK-2) Rel Index Troponin I NT-Pro-B Natriuret Pep Total Protein Albumin Globulin Albumin/Globulin Ratio Procalcitonin 2.87 H SARS-CoV-2 (PCR) Negative Influenza A (RT-PCR) Flu a negative Influenza B (RT-PCR) Flu b negative RSV (PCR) Negative 06/17/22 05:33 WBC RBC Hgb Hct MCV MCH MCHC RDW Plt Count Neut % (Auto) Lymph % (Auto) Cotton % (Auto) Eos % (Auto) Baso % (Auto) Neut # (Auto) Lymph # (Auto) Cotton # (Auto) Eos # (Auto) Baso # (Auto) PT INR D-Dimer Sodium 140 Potassium 3.3 L Chloride 104 Carbon Dioxide 28 BUN 18 H Creatinine 0.64 Estimated GFR > 60 BUN/Creatinine Ratio 28.1 H Glucose 103 Lactate Calcium 8.1 L Total Bilirubin AST ALT Alkaline Phosphatase Total Creatine Kinase CK-MB (CK-2) CK-MB (CK-2) Rel Index Troponin I NT-Pro-B Natriuret Pep Total Protein Albumin Globulin Albumin/Globulin Ratio Procalcitonin SARS-CoV-2 (PCR) Influenza A (RT-PCR) Influenza B (RT-PCR) RSV (PCR) PFSH Medical History CHF (congestive heart failure) Crohn's disease Hypertension Social History household members: family and children Smoking Status: Former smoker Assessment & Plan Assessment & Plan narrative: 1. Acute hypoxemic respiratory failure secondary to bacterial pneumonia -initial sats in the 80s, placed on oxygen, currently on 2L via NC. -elevated white count, procalcitonin consistent clinically with pneumonia. WBC improved today but all cell lines diminished. Ordered daily CBC. -UA dip negative for infection -chest xray negative per radiology read, but probable retrocardiac opacity. Consider repeat imaging or CT if no improvement. D-dimer negative with age adjusted cutoff. -initially given ceftriaxone and azithro, now continued on levaquin, 5-7 days of therapy total for bacterial pneumonia depending on progress 2. Chronic congestive heart failure with mild aortic stenosis -EF 50-55%, with mild -clinically not in CHF and appears euvolemic. -careful with IV fluids -hold diuretics for now until BP improved, borderline hypotension today. 3. Crohn's disease -on stelara as outpatient, continue when discharged 4. Hypertension -patient with somewhat low blood pressures on admit -hold home medications 5. Hypokalemia, acute - K 3.3, will replete with oral today. Ordered daily BMP. CODE: Full Proxy: Celeste Villatoro, daughter I have utilized all available resources to reconcile the patient's home medications Time Spent With Patient Critical Care time: I spent a total of [] minutes of critical care time on this patient's care today; this time is exclusive of procedural time. Quality VTE Deep Vein Thrombosis/Pulmonary Embolism Present on Admission: No
--- NOTE | 2022-06-17 12:57 | PC.NURSE ---
Addendum entered by Mattie Feliz R.N. 06/17/22 15:55: Pt resting at intervals denies discomfort SpO2 92% RA Call light w/in reach, pt calls appropriately for needs Continue w/plan of care. Original Note: Pt awake, denies discomfort at this time. HL x 2 hand intact/patent. Pt having relatively uneventful day Call light w/in reach, pt calls appropriately for needs.
--- NOTE | 2022-06-17 13:06 | CM.DANOTE ---
DCP Assessment: Patient is a 67 yr old male who was admitted for hypoxia and was placed on O2 here at the hospital. Patient is doing better today but is still on 2 L of O2 and MD wants her to stay until she is off oxygen. CM met with the patient at the bedside along with her daughter and primary caregiver. Patient lives [place] [address] [place] her daughter. patient resides on the ground level floor and has no need to go up the one stare to get into her daughters room. Patient is independent at baseline and has a Fww and Cane. Patients daughter does all the driving and transportation for the patient. I: Medicare and Selfpay Plan DC home with daughter when medically stable to do so [place] already has priority boarding. Melany Thakkar RNsocial work manager Discharge Planning/Care Management Advanced directive,confirm from FACILITY Start: 06/16/22 22:38 Freq: Q24H Status: Active Protocol: Document 06/16/22 22:38 MW (Rec: 06/17/22 07:04 MW [id number]) Advance Directive, confirm on record Time 21:00 Person contacted pt Copy received No CM Discharge Assessment Start: 06/17/22 13:03 Freq: Status: Active Protocol: Document 06/17/22 13:03 HS (Rec: 06/17/22 13:05 HS [id number]) Discharge Planning Assessment Assigned Hole Filler Melany Thakkar RNsocial work manager DPOA/Assigned Designee Name hanna Villatoro- Daughter Contact Information [phone] Advance Directives? No Advance Directives on File No History Provided By Patient,Family Member,Medical Record Prior Living Arrangements House Household Members family,children Type of transporation used prior to Relies on Others admit Comment Daughter provides all her transportation needs Independent with ADL's Yes Is patient alert and oriented? Yes Caregiver for Another No DME Already Rented / Owned FWW / Walker,Cane Barriers to Discharge No Discharge Plan Home Transportation Arrangement Daughter Hanna will be providing transportation back to [place] when mother is ready and already has priority boarding through her MD office Referrals Initiated None needed Whiteboard Updated in Patient Room with Yes name and ext. # of Hole Filler Review Status In Process Next Review Type Continued Stay Review
--- NOTE | 2022-06-17 16:31 | DIET.CONS ---
Dietary Consultation Note Admission Date: 06/16/2022 20:46 Assessment: 67y F admitted for cough, low oxygen requiring oxygen screened by RD for low BMI (16.6) and MNA score 4 (malnourished). RD met with patient at bedside. Pt until recently lived in [place], [place] and was hospitalized for 1mo for new dx Crohn's Disease and Congestive Heart Failure. At that time pt was experiencing significant malabsorption and down to 39kg. Pt was started on Stelara (monoclonal antibody) of which she has had two doses to date. Since April, pt has gained 7kg but remains 10kg below her UBW with severe BMI (16.6). Pt avoids dairy and chicken, is trying to avoid most industrialized food additives. Pt drinking [employer] ONS which she states is expensive (pea-protein based). Pt reports being under significant stress leading up to her new dx. of partner and moving into a communal living basement. Pt recently relocated to [place] to live with her daughter. Pts daughter has digestive condition causing her to make nearly all food from scratch from whole ingredients. Pts daughter willing to do same for pt. Ht: 167.64 cm Wt: 46.72 kg BMI: 16.6 (severe) UBW: 56.8kg Last BM: 06/14/22 (06/16/22 22:21) MNA: 4 Braulio Score: 17 Diet: 06/17/22 Breakfast Heart Healthy Diet Diet Modifications: lactose free Nutrition Percent Meal Consumed 75% 06/17/22 14:12 Percent Meal Consumed 90%/ 06/17/22 09:48 Labs: RBC 3.48 X10^6/uL (4.0-5.2) L 06/17/22 05:33 Hgb 10.4 g/dL (12.0-16.0) L 06/17/22 05:33 Hct 30.6 % (36-46) L 06/17/22 05:33 Creatinine 0.64 mg/dL (0.52-1.04) 06/17/22 05:33 Lactate 1.4 mmol/L (0.7-2.1) 06/16/22 18:20 NT-Pro-B Natriuret Pep 489 pg/mL (<125) H 06/16/22 18:20 Nutrition Diagnosis: Severe Acute Protein Calorie Malnutrition r/t malabsorption aeb pt 18% below UBW, BMI 16.6, pt with new dx Crohn's Disease on second dose of immunotherapy. -Malnutrition increases mortality and morbidity of hospitalized patients. Interventions: 1. Collaborated c pt on high protein/high kcal foods to eat while hospitalized and while at home. Providing pt pea-protein based smoothies in addition to meal trays as desired. RD informed kitchen staff on patient dietary requirements. 2. Reiterated supportive nutrition for Crohns as avoiding known triggers, managing stress, and avoiding excessive food additives in addition to continued medication management. 3. Suggested alternate pea-protein formulations which may be more cost effective to use in home setting. EER: 1600kcals (35kcal/kg), 65-70g PRO (1.5g/kg) Monitoring/Evaluations: ONS tolerance Electronically Signed by: Esperanza Eldridge 06/17/22 16:31 Clinical Dietitian [address] [address]
[2022-06-17] MEDS: SIMETHICONE 80 MG TABLET PO (21:10)
[2022-06-17] MEDS: SODIUM CHLORIDE 0.9% FLUSH 10 ML IV (21:11)
[2022-06-17] MEDS: CODEINE/GUAIFENESIN LIQUID 5ML UDC 5 ML PO (21:34)
[2022-06-17] MEDS: ACETAMINOPHEN 325 MG TABLET 650 MG PO (23:41)
[2022-06-17] MEDS: BENZONATATE 100 MG CAPSULE PO (23:41)
[2022-06-18] VITALS (14 sets, daily range): BP systolic 89–152; BP diastolic 46–70; PULSE 85–117; RESP 16–20; TEMP 36.2–38.8; O2SAT 90–97
[2022-06-18 05:40] LABS: Add Manual Diff / Slide Review NO; Basophils Absolute Auto 0 /uL (0-100); Basophils Percent Auto 0.3 % (0-2); Eosinophils Absolute Auto 200 /uL (0-450); Eosinophils Percent Auto 2.7 % (2-4); Hemoglobin 9.8 g/dL (12.0-16.0); Lymphocytes Absolute Auto 1200 /uL (1100-4500); Lymphocytes Percent Auto 15.6 % (25-40); Mean Corpuscular HGB Conc 33.7 % (30-36); Mean Corpuscular Hemoglobin 29.7 PG (26-34); Monocytes Absolute Auto 600 /uL (0-900); Monocytes Percent Auto 7.8 % (3-14); Neutrophils Absolute Auto 5400 /uL (1500-7000); Neutrophils Percent Auto 73.6 % (50-75); Platelet Count 151 X10^3/uL (150-400); Red Cell Distribution Width 13.1 % (11.6-14.8); White Blood Cell Count 7.4 X10^3/uL (4.5-11.0)
[2022-06-18 05:48] LABS: Magnesium 1.7 mg/dL (1.6-2.3)
[2022-06-18 05:49] LABS: BUN Creatinine Ratio 24.6 (6-22); Blood Urea Nitrogen 15 mg/dL (7-17); Calcium 8.1 mg/dL (8.4-10.2); Carbon Dioxide 29 mmol/L (22-32); Chloride 106 mmol/L (98-107); Estimated Glomerular Filt Rate > 60 mL/min (>60); Glucose 111 mg/dL (80-110); HEMOLYSIS < 15 (0-50); Potassium 3.3 mmol/L (3.4-5.1); Sodium 140 mmol/L (137-145)
[2022-06-18] MEDS: PANTOPRAZOLE DR 40 MG TABLET PO (07:00)
[2022-06-18] MEDS: ENOXAPARIN 40 MG/0.4 ML SYRINGE SUBCUT (08:41)
[2022-06-18] MEDS: levoFLOXacin 750 MG/150 ML PIGGYBACK 100 MG IV (08:41)
[2022-06-18] MEDS: SODIUM CHLORIDE 0.9% FLUSH 10 ML IV ×2 (08:41→20:51)
--- NOTE | 2022-06-18 08:45 | P.PN_ITS ---
Subjective Subjective Interval history: 59-year-old female with chronic congestive heart failure with preserved ejection fraction, mild aortic stenosis, Crohn's, and hypertension admitted with acute hypoxic respiratory failure and retrocardiac pneumonia. Patient received 1 dose of Rocephin and azithromycin and has now received 2 doses of IV Levaquin 750 mg. She is requiring 2 L of oxygen to maintain saturations. Initial white blood cell count was 14.9, it has now normalized to 7.4. Patient reports she is feeling a bit more fatigued today than yesterday. She is complaining of being quite tired and low energy. She reports she had a 22 day hospital stay in [place] at which time she was diagnosed with Crohn's. She lost 30 lb during that hospital stay and has not fully recovered. Daughter notes that they have been holding her metoprolol since admission. She is concerned about that as she reports it was prescribed for ?fast heart rate?. Her spironolactone and losartan have also been held. Patient was diagnosed with congestive heart failure while in [place]. At that time her ejection fraction was reported to be 35%. It is now up to 50%. She is additionally on torsemide which is being given as needed for increased weight gain. Exam Vital Signs (past 8 hours): - 06/18/22 04:00 06/18/22 01:00 06/18/22 05:00 Temperature 97.1 F L Pulse Rate 86 Respiratory Rate 18 Blood Pressure 105/46 L Pulse Oximetry 97 97 96 Oxygen Delivery Method Nasal Cannula Nasal Cannula Oxygen Flow Rate 2 2 2 Oxygen Delivery Method Nasal Cannula Oxygen Flow Rate 2 Narrative Exam Narrative: GEN: Chronically ill-appearing middle-aged female, Alert and oriented x 3, NAD HEENT:NC, Face symmetric CHEST: Respiratory excursions symmetric, inspiratory rhonchi heard in the right mid lung zone, clear on the left CV: RRR, no M/R/G ABD: Soft, mildly diffusely tender,ND, BT present in all 4 quadrants, no organomegaly or masses EXTR: warm, well perfused, no C/C/E SKIN: warm and dry, no rash NEURO: Alert and oriented x 3, nonfocal Objective Labs Result Diagrams: 06/18/22 05:13 06/18/22 05:13 Labs: Laboratory Results - last 24 hr 06/18/22 06/18/22 06/18/22 05:13 05:13 05:13 WBC 7.4 RBC 3.30 L Hgb 9.8 L Hct 29.0 L MCV 88.0 MCH 29.7 MCHC 33.7 RDW 13.1 Plt Count 151 Neut % (Auto) 73.6 Lymph % (Auto) 15.6 L [place] % (Auto) 7.8 Eos % (Auto) 2.7 Baso % (Auto) 0.3 Neut # (Auto) 5400 Lymph # (Auto) 1200 [place] # (Auto) 600 Eos # (Auto) 200 Baso # (Auto) 0 Sodium 140 Potassium 3.3 L Chloride 106 Carbon Dioxide 29 BUN 15 Creatinine 0.61 Estimated GFR > 60 BUN/Creatinine Ratio 24.6 H Glucose 111 H Calcium 8.1 L Magnesium 1.7 PFSH Medical History CHF (congestive heart failure) Crohn's disease Hypertension Social History household members: family and children Smoking Status: Former smoker Assessment & Plan Assessment & Plan narrative: 1. Acute hypoxic respiratory failure Etiology is pneumonia. O2 need is 2 L presently. Will wean down to 1 L and monitor. Continue treating for pneumonia as outlined below. I have encouraged her to work on getting out of bed today for a couple of hours and sitting in a chair. 2. Community Acquired pneumonia Viral PCR were flu, COVID, and RSV were negative. She does have abnormal breath sounds on the right side on exam. Now afebrile. White blood cell count improving. Continues on Levaquin. 3. Crohn's disease Presently holding Stelara. No diarrhea. 4. Chronic congestive heart failure with preserved ejection fraction Holding torsemide spironolactone for now. Clinically euvolemic. 5. Mild aortic stenosis Stable. 6. Hypertension Will plan to resume metoprolol, but hold losartan and spironolactone. 7. Hypokalemia Will continue to replete 8. Normocytic anemia Hemoglobin is 9.8. This is down from admission of 11.7. No concern for active bleeding. Likely hemodilutional. 9. Thrombocytopenia Mild yesterday at 141. Today has resolved and is 151. Code status Full Prophylaxis On Lovenox Disposition Work on weaning oxygen today increasing activity. Hopefully discharge home tomorrow. Time Spent With Patient Critical Care time: I spent a total of [] minutes of critical care time on this patient's care today; this time is exclusive of procedural time. Quality VTE Deep Vein Thrombosis/Pulmonary Embolism Present on Admission: No
[2022-06-18] MEDS: POTASSIUM CHLORIDE 20 MEQ TAB 40 MEQ PO (11:09)
[2022-06-18] MEDS: SIMETHICONE 80 MG TABLET PO (18:49)
[2022-06-18] MEDS: LACTOBACILLUS ACIDOPHILUS TABLET 1 EACH PO (18:49)
[2022-06-18] MEDS: BENZONATATE 100 MG CAPSULE PO (18:50)
[2022-06-18] MEDS: METOPROLOL ER 50 MG TABLET 100 MG PO (20:51)
[2022-06-19] VITALS: BP 104/58; PULSE 72; RESP 16; TEMP 37.6; O2SAT 94
[2022-06-19 02:00] VITALS: O2SAT 96
[2022-06-19 04:00] VITALS: BP 104/52; PULSE 65; RESP 20; TEMP 36.7; O2SAT 96
--- NOTE | 2022-06-19 04:58 | PC.NURSE ---
Pt is AxOx4, calm and cooperative. Pt needs STA assistance and pt denies pain. pt is on RA now and sats 92-93s. Pt lungs diminished in all area and RLL posterior, it has crackles. No other changes. Pt slept well. Continue monitor.
[2022-06-19 05:38] LABS: Add Manual Diff / Slide Review NO; Basophils Absolute Auto 0 /uL (0-100); Basophils Percent Auto 0.2 % (0-2); Eosinophils Absolute Auto 400 /uL (0-450); Eosinophils Percent Auto 6.8 % (2-4); Hematocrit 29.9 % (36-46); Hemoglobin 10.2 g/dL (12.0-16.0); Lymphocytes Absolute Auto 1400 /uL (1100-4500); Lymphocytes Percent Auto 26.9 % (25-40); Mean Corpuscular HGB Conc 34.3 % (30-36); Mean Corpuscular Hemoglobin 29.9 PG (26-34); Monocytes Absolute Auto 400 /uL (0-900); Monocytes Percent Auto 7.6 % (3-14); Neutrophils Absolute Auto 3100 /uL (1500-7000); Neutrophils Percent Auto 58.5 % (50-75); Platelet Count 196 X10^3/uL (150-400); Red Blood Cell Count 3.43 X10^6/uL (4.0-5.2); White Blood Cell Count 5.2 X10^3/uL (4.5-11.0)
[2022-06-19 05:44] LABS: Magnesium 1.7 mg/dL (1.6-2.3)
[2022-06-19 05:45] LABS: BUN Creatinine Ratio 21.2 (6-22); Blood Urea Nitrogen 11 mg/dL (7-17); Calcium 8.3 mg/dL (8.4-10.2); Carbon Dioxide 26 mmol/L (22-32); Chloride 105 mmol/L (98-107); Estimated Glomerular Filt Rate > 60 mL/min (>60); Glucose 101 mg/dL (80-110); HEMOLYSIS < 15 (0-50); Potassium 3.5 mmol/L (3.4-5.1); Sodium 139 mmol/L (137-145)
[2022-06-19 06:00] VITALS: O2SAT 94
[2022-06-19] MEDS: PANTOPRAZOLE DR 40 MG TABLET PO (06:03)
[2022-06-19 08:00] VITALS: BP 97/47; PULSE 95; RESP 16; TEMP 36.4; O2SAT 94
[2022-06-19] MEDS: levoFLOXacin 750 MG/150 ML PIGGYBACK 100 MG IV (09:03)
[2022-06-19] MEDS: ENOXAPARIN 40 MG/0.4 ML SYRINGE SUBCUT (09:03)
[2022-06-19] MEDS: LACTOBACILLUS ACIDOPHILUS TABLET 1 EACH PO (09:03)
[2022-06-19] MEDS: SODIUM CHLORIDE 0.9% FLUSH 10 ML IV (09:04)
--- NOTE | 2022-06-19 09:25 | PC.NURSE ---
Assess- Patient is alert and oriented x4, she denies pain. She is using her IS, ambulating with her daughter in the halls and is hoping to discharge home soon. Levaquin is infusing now.
[2022-06-19] MEDS: POTASSIUM CHLORIDE 20 MEQ TAB 40 MEQ PO (11:52)
[2022-06-19] MEDS: MAGNESIUM CHLORIDE 64 MG TABLET 128 MG PO (11:52)
--- NOTE | 2022-06-19 13:39 | PM.DS.1 ---
History of Present Illness History of Present Illness Date Patient Seen: 06/19/22 Time Patient Seen: 13:30 Chief complaint: Cough, O2 @ 88 Narrative: 59-year-old female with chronic congestive heart failure with preserved ejection fraction, mild aortic stenosis, Crohn's, and hypertension admitted with acute hypoxic respiratory failure and retrocardiac pneumonia Patient initially treated with Rocephin and then transitioned to Levaquin IV. Initially required oxygen and now is off oxygen supplementation. Eager to go home. No complaint of any fever chills nausea vomiting or diaphoresis. No chest pain or palpitations no shortness of breath wheezing or cough. No abdominal pain constipation or diarrhea. No dysuria hematuria. Able to move all extremities volitionally. No localized strength deficits. No localized neurological symptoms in extremities. Discharge Providers Provider Date of admission: 06/16/22 20:46 Discharge Date: 06/19/22 Primary care physician: RUBENS Amaya Discharge provider: Joselyn De Los Santos MD Summary Hospital Course Discharge Diagnosis: 1. Acute hypoxic respiratory failure secondary to pneumonia. Acute. 2. Community Acquired pneumonia, bacterial. Acute. 3. Crohn's disease, chronic. 4. Chronic congestive heart failure with preserved ejection fraction 5. Mild aortic stenosis, chronic 6. Hypertension, chronic 7. Hypokalemia, acute. 9. Thrombocytopenia, acute. Hospital Course: Patient presented with acute hypoxic respiratory failure requiring O2 supplementation. Documented retrocardiac pneumonia. Initially treated with Rocephin IV and then transitioned to Levaquin 750 mg IV every 24 hours. This will be continued orally on discharge. Potassium was replaced to correct hypokalemia. Patient's medication for Crohn's disease was held during the hospital stay and will be re-initiated on discharge. Medication for hypertension was continued during the hospital stay. Thrombocytopenia was noted on admission and resolved during the hospital stay. Status at Discharge Cognitive/behavioral status at discharge: at baseline, oriented Functional status at discharge: independent ambulation Overall status at discharge: patient is back to baseline Time Spent with Patient Time spent: Greater than 30 minutes Exam Vital Signs (past 8 hours): - 06/19/22 06:00 06/19/22 10:00 06/19/22 08:00 Temperature 97.6 F Pulse Rate 95 H Respiratory Rate 16 Blood Pressure 97/47 L Pulse Oximetry 94 94 Oxygen Delivery Method Room Air Room Air Oxygen Flow Rate 0 Oxygen Delivery Method Room Air Oxygen Flow Rate 0 Narrative Exam Narrative: GEN:? Alert and oriented x 3, NAD HEENT: Face symmetric, head normocephalic. Patient wearing glasses. Pupils equal reactive to light. Extraocular movements normal. CHEST: Respiratory excursions symmetric, general decreased air entry throughout the lung visit awad but no wheezes or crackles. CV: RRR, no M/R/G, heart sounds S1 and S2 ABD: Soft, mildly diffusely tender, bowel sounds present throughout the abdomen, no organomegaly or masses EXTR: warm, well perfused, no C/C/E SKIN: warm and dry, no rash, no lesions NEURO: Alert and oriented x 3, no localizing signs Objective Labs Result Diagrams: 06/19/22 05:14 06/19/22 05:14 Labs: Laboratory Results - last 24 hr 06/19/22 06/19/22 06/19/22 05:14 05:14 05:14 WBC 5.2 RBC 3.43 L Hgb 10.2 L Hct 29.9 L MCV 87.0 MCH 29.9 MCHC 34.3 RDW 13.0 Plt Count 196 Neut % (Auto) 58.5 Lymph % (Auto) 26.9 [place] % (Auto) 7.6 Eos % (Auto) 6.8 H Baso % (Auto) 0.2 Neut # (Auto) 3100 Lymph # (Auto) 1400 [place] # (Auto) 400 Eos # (Auto) 400 Baso # (Auto) 0 Sodium 139 Potassium 3.5 Chloride 105 Carbon Dioxide 26 BUN 11 Creatinine 0.52 Estimated GFR > 60 BUN/Creatinine Ratio 21.2 Glucose 101 Calcium 8.3 L Magnesium 1.7 PFSH Medical History CHF (congestive heart failure) Crohn's disease Hypertension Social History household members: family and children Smoking Status: Former smoker Discharge Plan Discharge Plan Patient Disposition: Home Discharge orders & Medications Prescriptions: New Freeze Dried Acidophilus Capsule 1 ea PO BIDWM Qty: 60 0RF acetaminophen 325 mg Tablet 650 mg PO Q6H PRN (Reason: Fever/Mild Pain (1-3)) Qty: 100 0RF benzonatate 100 mg Capsule 100 mg PO TID PRN (Reason: Cough) Qty: 30 0RF pantoprazole 40 mg Tablet,Delayed Release (Dr/Ec) 40 mg PO 0700 Qty: 30 0RF levofloxacin 750 mg tablet 750 mg PO DAILY Qty: 5 0RF Continued ipratropium-albuterol 0.5 mg-3 mg(2.5 mg base)/3 mL Solution For Nebulization 3 ml INHALATION Q6H PRN (Reason: Shortness Of Breath) metoprolol succinate 100 mg Tablet Extended Release 24 Hr 100 mg PO BEDTIME torsemide 10 mg Tablet 10 mg PO PRN PRN (Reason: Weight Gain) spironolactone 25 mg Tablet 25 mg PO DAILY losartan 25 mg Tablet 12.5 mg PO DAILY omeprazole 20 mg Capsule,Delayed Release(Dr/Ec) 20 mg PO DAILY albuterol sulfate 90 mcg/actuation Hfa Aerosol Inhaler 2 puff INHALATION Q4-6H PRN (Reason: Shortness Of Breath) Stelara 90 mg/mL Syringe 90 mg SUBCUT Q8W hydroxyzine HCl 10 mg/5 mL (5 mL) Solution 25 mg PO QID PRN (Reason: Anxiety) Follow up/Referrals: Ayala Garcia ARNP [Primary Care Provider] - Visit Report/Discharge Packet Stand Alone Forms: Patient Portal/API, Stroke Signs & Symptoms Discharge Data Primary Care Provider: Ayala Garcia VTE Deep Vein Thrombosis/Pulmonary Embolism Present on Admission: No
--- NOTE | 2022-06-19 15:22 | CM.DPC ---
DCP Discharge Home Per MD, pt is off oxygen and tolerating room air and medically stable to d/c home today and no identified barriers to discharge. Per RN, pt has been ambulating halls and has Dtr bedside and given d/c instructions and they plan to catch the [address]20 ferry back to [place] and no concerns at this time. Plan: Patient to d/c home today via Dtr POV back to [place] and no further SW needs at this time. BREE Turner
== END 2022-06-19 16:09 | disposition home or self-care (01) | DRG 193 ==
LOC: ED 20:41 → AC 20:47
PROVIDERS: Emergency Medicine; Internal Medicine; Admitting Provider Internal Medicine; Emergency Provider Emergency Medicine; PCP Nurse Practitioner Family; Referring Provider Emergency Medicine; Visit Provider Internal Medicine
DX: J15.9 Unspecified bacterial pneumonia (principal); J96.01 Acute respiratory failure with hypoxia; I50.32 Chronic diastolic (congestive) heart failure; I35.0 Nonrheumatic aortic (valve) stenosis; E87.6 Hypokalemia; I11.0 Hypertensive heart disease with heart failure; Z87.891 Personal history of nicotine dependence; Z20.822 Contact with and (suspected) exposure to COVID-19
CPT/HCPCS: 0241U; 36415; 71045; 80048; 80053; 81003; 82550; 83605; 83735; 83880; 84145; 84484; 85025; 85379; 85610; 87040; 87086; 94640; 94760; 96365; 99285; J0696; J1650; J1956

== ENCOUNTER → 2022-11-02 14:32 | Outpatient (CLI) | payer MEDICARE, SELFPAY ==
[2022-11-02 15:25] LABS: Alanine Aminotransferase 21 IU/L (<35); Albumin 4.2 g/dL (3.5-5.0); Albumin Globulin Ratio 1.3 (1.0-2.8); Alkaline Phosphatase 92 U/L (38-126); Aspartate Aminotransferase 26 IU/L (14-36); BUN Creatinine Ratio 31.7 (6-22); Bilirubin Total 0.8 mg/dL (0.2-1.3); Blood Urea Nitrogen 20 mg/dL (7-17); Calcium 8.7 mg/dL (8.4-10.2); Carbon Dioxide 24 mmol/L (22-32); Chloride 105 mmol/L (98-107); Estimated Glomerular Filt Rate > 60 mL/min (>60); Globulin 3.2 g/dL (1.7-4.1); Glucose 135 mg/dL (80-110); HEMOLYSIS < 15 (0-50); Potassium 3.8 mmol/L (3.4-5.1); Sodium 140 mmol/L (137-145); Total Protein 7.4 g/dL (6.3-8.2)
== END ==
PROVIDERS: PCP Nurse Practitioner Family; Referring Provider Nurse Practitioner; Visit Provider Nurse Practitioner
DX: I50.20 Unspecified systolic (congestive) heart failure (principal)
CPT/HCPCS: 36415; 80053

== ENCOUNTER → 2024-02-24 10:50 | Outpatient (CLI) | payer MEDICARE, SELFPAY ==
--- NOTE | 2024-02-24 10:58 | DI.RAD.S_ITS ---
PROCEDURE: XR DEXA AXIAL SKELETON INDICATIONS: POSTMENOPAUSAL ESTROGEN DEFICIENCY COMPARISON: [facility], CR, XR DEXA AXIAL SKELETON, 05/21/2022, 13:43. FINDINGS: Lumbar Spine: Bone mineral density 0.899 g/cm2, T score -1.3, previously -2.2. Left Femoral hip: Bone mineral density 0.638 g/cm2, T score -2.5, previously -2.7. Right Femoral hip: Bone mineral density 0.647 g/cm2, T score -2.4, previously -2.6. Fracture Risk Calculation (when applicable): 10-year fracture risk of a major osteoporotic fracture 23% and of a hip fracture 7.4%. (T score greater or equal to -1.0 to: NORMAL) (T score from -1.1 to -2.4: OSTEOPENIA) (T score less than or equal to -2.5: OSTEOPOROSIS) IMPRESSION: 1. Osteoporosis of the left hip. 2. Osteopenia of the lumbar spine and right hip. 3. 3% increase in bone density at the right hip. 4. 4.6% increase in bone density at the left hip. 5. 12.1% increase in bone density at the lumbar spine. Follow-up guidelines as follows: Osteoporosis: Consider a repeat DEXA and Vertebral Fracture Assessment (VFA) exam in 2 years or sooner if medically necessary, to reassess this patient's status. Osteopenia: Consider a repeat DEXA in 2-3 years to reassess this patient's status, or if there is a new clinical indication. Normal: Consider a repeat DEXA in 5 years or sooner, or if there is a new clinical indication. All treatment decisions require clinical judgment and consideration of individual patient factors, including patient preferences, comorbidities, previous drug use, risk factors not captured in the FRAX model (e.g., frailty, falls, vitamin D deficiency, increased bone turnover, interval significant decline in bone density ) and possible under- or over-estimation of fracture risk by FRAX. In addition, the NOF Guide recommends that FDA-approved medical therapies be considered in postmenopausal women and men age >= 50 years with a: * Hip or vertebral (clinical or morphometric) fracture * T-score of <=-2.5 at the spine or hip * Ten-year fracture probability by FRAX of >= 3% for hip fracture or >=20% for major osteoporotic fracture. People with diagnosed cases of osteoporosis or at high risk for fracture should have regular bone mineral density tests. For patients eligible for Medicare, routine testing is allowed once every 2 years. The testing frequency can be increased to one year for patients who have rapidly progressing disease, those who are receiving or discontinuing medical therapy to restore bone mass, or have additional risk factors. Dictated by: Neri Quarles M.D. on 02/27/2024 at 6:56 Approved by: Neri Quarles M.D. on 02/27/2024 at 7:03
[2024-02-24 11:48] LABS: Add Manual Diff / Slide Review NO; Basophils Absolute Auto 0 /uL (0-100); Basophils Percent Auto 0.4 % (0-2); Eosinophils Absolute Auto 200 /uL (0-450); Eosinophils Percent Auto 4.5 % (2-4); Hematocrit 36.8 % (36-46); Hemoglobin 12.5 g/dL (12.0-16.0); Lymphocytes Absolute Auto 1600 /uL (1100-4500); Lymphocytes Percent Auto 34.4 % (25-40); Mean Corpuscular Hemoglobin 30.8 PG (26-34); Mean Corpuscular Volume 90.5 fL (80-100); Monocytes Absolute Auto 400 /uL (0-900); Monocytes Percent Auto 8.5 % (3-14); Neutrophils Absolute Auto 2400 /uL (1500-7000); Neutrophils Percent Auto 52.2 % (50-75); Platelet Count 181 X10^3/uL (150-400); Red Blood Cell Count 4.07 X10^6/uL (4.0-5.2); White Blood Cell Count 4.7 X10^3/uL (4.5-11.0)
[2024-02-24 12:14] LABS: Erythrocyte Sedimentation Rate 33 MM/HR (0-20)
[2024-02-27 11:09] LABS: Alder IgE <0.10 kU/L (Class 0); Alternaria alternata IgE <0.10 kU/L (Class 0); Aspergillus fumigatus IgE <0.10 kU/L (Class 0); Box Elder IgE <0.10 kU/L (Class 0); Cat Dander IgE <0.10 kU/L (Class 0); Cladosporium herbarum IgE <0.10 kU/L (Class 0); Cockroach IgE <0.10 kU/L (Class 0); Cottonwood IgE <0.10 kU/L (Class 0); D farinae IgE <0.10 kU/L (Class 0); Dog Dander IgE <0.10 kU/L (Class 0); Elm Tree IgE <0.10 kU/L (Class 0); Immunoglobulin E 19 IU/mL (6-495); Mountain Cedar IgE <0.10 kU/L (Class 0); Mouse Urine Proteins IgE <0.10 kU/L (Class 0); Nettle IgE <0.10 kU/L (Class 0); Oak Tree IgE <0.10 kU/L (Class 0); Penicillium chrysogen IgE <0.10 kU/L (Class 0); Pigweed, Common IgE <0.10 kU/L (Class 0); Ragweed, Short <0.10 kU/L (Class 0); Sheep Sorrel IgE <0.10 kU/L (Class 0); Silver Birch IgE <0.10 kU/L (Class 0); Timothy Grass IgE <0.10 kU/L (Class 0); Walnut Allery IgE < 0.10 kU/L (Class 0); White ash IgE <0.10 kU/L (Class 0)
[2024-02-27 16:11] LABS: DNA (DS) Antibody <1 IU/mL (0-9)
== END ==
PROVIDERS: PCP Nurse Practitioner Family; Referring Provider Internal Medicine Pulmonary Disease; Visit Provider Internal Medicine Pulmonary Disease
DX: Z78.0 Asymptomatic menopausal state (principal); J30.9 Allergic rhinitis, unspecified; D72.10 Eosinophilia, unspecified; M81.0 Age-related osteoporosis without current pathological fracture; M85.88 Other specified disorders of bone density and structure, other site
CPT/HCPCS: 36415; 77080; 82785; 85025; 85651; 86003; 86225; 86256

== ENCOUNTER → 2024-12-05 14:18 | Outpatient (CLI) | payer MEDICARE, SELFPAY ==
--- NOTE | 2024-12-05 14:30 | DI.RAD.S_ITS ---
PROCEDURE: XR CHEST MIN 4V INDICATIONS: Chronic systolic (congestive) heart failure TECHNIQUE: 2 views of the chest were acquired. COMPARISON: [facility], CT, CT CHEST WITHOUT CONTRAST, 07/29/2022, 12:52. [facility], CR, XR DEXA AXIAL SKELETON, 02/24/2024, 11:54. [facility], CR, XR CHEST 1V, 06/16/2022, 18:19. FINDINGS: Surgical changes and devices: None. Lungs and pleura: More prominent right mid upper lobe nodularity. Mild emphysema. Mediastinum: Mediastinal contours are normal. Heart size is normal. Bones and chest wall: No suspicious bony abnormalities. Soft tissues appear unremarkable. IMPRESSION: More prominent right upper lobe nodularity compared with 2022. Consider follow- up CT if not performed since 2022. Dictated by: Luiz Cornejo M.D. on 12/05/2024 at 16:37 Approved by: Luiz Cornejo M.D. on 12/05/2024 at 16:38
[2024-12-05 16:25] LABS: Alanine Aminotransferase 21 IU/L (<35); Albumin 4.2 g/dL (3.5-5.0); Albumin Globulin Ratio 1.4 (1.0-2.8); Alkaline Phosphatase 93 U/L (38-126); Aspartate Aminotransferase 27 IU/L (14-36); BUN Creatinine Ratio 25.5 (6-22); Bilirubin Total 0.8 mg/dL (0.2-1.3); Blood Urea Nitrogen 25 mg/dL (7-17); Calcium 9.7 mg/dL (8.4-10.2); Carbon Dioxide 27 mmol/L (22-32); Chloride 104 mmol/L (98-107); Estimated Glomerular Filt Rate > 60 mL/min (>60); Globulin 2.9 g/dL (1.7-4.1); Glucose 108 mg/dL (70-99); HEMOLYSIS < 15 (0-50); Magnesium 1.6 mg/dL (1.6-2.3); Potassium 3.9 mmol/L (3.4-5.1); Sodium 140 mmol/L (137-145); Total Protein 7.1 g/dL (6.3-8.2)
[2024-12-05 16:30] LABS: NT-proBNP (BNP-Adult 18+) 223 pg/mL (<125)
== END ==
PROVIDERS: PCP Nurse Practitioner Family; Referring Provider Nurse Practitioner; Visit Provider Nurse Practitioner
DX: I50.22 Chronic systolic (congestive) heart failure (principal); R06.09 Other forms of dyspnea; J43.9 Emphysema, unspecified
CPT/HCPCS: 36415; 71046; 80053; 83735; 83880; 84443